=== PATIENT | male | born 1985 | race African-American/Black ===

== ENCOUNTER 2020-03-21 19:27 | Emergency (ER) | payer OTHER ==
[2020-03-21 19:33] VITALS: BMI 30.7
--- NOTE | 2020-03-21 20:12 | PDOC ---
History of Present Illness - General Chief Complaint: Pain, Acute Stated Complaint: FOOT PAIN Time Seen by Provider: 03/21/20 19:46 History Source: Patient Exam Limitations: No Limitations - History of Present Illness Initial Comments: 03/21/20 20:10 34-year-old male hx bi polar depression presented to the ED complaining of suicidal homicidal idealization as well as audiovisual hallucinations. Patient is also complaining of a right foot pain after which will not elaborate on. Patient was found at a bus stop and EMS was called. Pt states that his plan to commit suicide was to jump in front of a car and that he tried earlier today but the car stopped. Pt otherwise denies: fevers, chills, syncope, lightheadedness, dizziness, headaches, neck pain, chest pain, shortness of breath, palpitations, back pain, abdominal pain, nausea, vomiting, diarrhea, constipation. 03/21/20 20:56 Past History - Medical History Allergies/Adverse Reactions: Allergies Allergy/AdvReac Type Severity Reaction Status Date / Time No Known Allergies Allergy Verified 03/21/20 19:33 COPD: No Psychiatric Problems: Yes (BIPOLAR) - Psycho-Social/Smoking History Smoking History: Current every day smoker Number of Cigarettes Smoked Daily: 20 Information on smoking cessation initiated: No - Substance Abuse Hx (Audit-C & DAST Scrn) How often the patient has a drink containing alcohol: 2-3 times / week Number of drinks the patient has on a typical day: 1 or 2 How often the patient has six or more drinks on one occasion: Never Score: In Men: 4 or > Positive; In Women: 3 or > Positive: 3 Screen Result (Pos requires Nsg. Audit-10AR): Negative In the last yr the pt used illegal drug/Rx for NonMed reason: Yes Score: Yes response is considered Positive: 1 Screen Result (Positive result requires Nsg. DAST-10): Positive *Physical Exam - Vital Signs Last Vital Signs Temp Pulse Resp BP Pulse Ox 98.2 F 62 19 123/73 98 03/21/20 19:29 03/21/20 19:29 03/21/20 19:29 03/21/20 19:29 03/21/20 19:29 - Physical Exam 03/21/20 20:10 Gen: AAOx 3, no acute distress, comfortable, no signs of respiratory distress HENT: atraumatic, normocephalic with no laceration or contusion. Nasal mucosa without erythema. Oropharynx without erythema or exudates. Mucous membranes moist. EYES: PERRL, EOM intact, conjunctiva pink NECK: supple; trachea midline; no JVD, no lymphadenopathy, or thyromegaly CV: RRR no murmurs, gallops, or rubs. CHEST: CTA b/l no wheezing, rales or rhonchi ABD: +BS/ND. no TTP; soft, no rebound, no guarding EXTREMITY: no cyanosis or erythema. 2+ dorsalis pedis, posterior tibial, and radial pulse. No pedal edema; no calf swelling or tenderness SKIN: no rash, warm and dry, no diaphoresis HEME: no purpura or ecchymosis NEURO: normal speech, CN II-XII intact, sensation intact, normal gait, no cerebellar deficits MS: 5/5 strength in all extremities, FROM intact in all extremities except R foot R foot: ttp to posterior heel of foot distal to Achilles insertion with an area of calloused cracked skin no erythema or increased warmth ED Treatment Course - LABORATORY CBC & Chemistry Diagram: 03/21/20 20:40 03/21/20 20:40 - RADIOLOGY Radiology Studies Ordered: Category Date Time Status FOOT-RIGHT [RAD] Stat Radiology 03/21/20 20:08 Ordered Medical Decision Making - Medical Decision Making 03/21/20 20:11 34-year-old male with SI HI Vital signs stable Patient put immediately on one-on-one observation Will obtain labs EKG and foot x-ray Will keep in ED on one-on-one observation until psychiatry is able to see patient Consult placed to psych for AM Labs: White blood cell count of 10.9 H/H: 15.4/45.6 Creatinine 1.6 (will start fluids) AST 60 Alcohol negative Tylenol negative Salicylate negative Utox positive for Cocaine Foot XR negative for any acute pathology Due to shift change pt signed out 03/21/20 23:21 Discharge - Discharge Information Problems reviewed: Yes Clinical Impression/Diagnosis: Psychiatric complaint Condition: Stable - Follow up/Referral - Patient Discharge Instructions - Post Discharge Activity Work/Back to School Note: My Personal Safety Plan
--- NOTE | 2020-03-21 20:17 | PDOC ---
*Physical Exam - Vital Signs Last Vital Signs Temp Pulse Resp BP Pulse Ox 98.2 F 62 19 123/73 98 03/21/20 19:29 03/21/20 19:29 03/21/20 19:29 03/21/20 19:29 03/21/20 19:29 Medical Decision Making - Medical Decision Making 03/21/20 20:17 Patient seen by the advanced practice provider under my supervision. Ancillary testing reviewed as necessary. I agree with plan as outlined by the advanced practice provider. Discharge - Discharge Information Problems reviewed: Yes Clinical Impression/Diagnosis: Psychiatric complaint - Follow up/Referral - Patient Discharge Instructions
[2020-03-21 20:58] LABS: BASO % 0.2 % (0-2.0); EOS % 0.3 % (0-4.5); HEMATOCRIT 45.6 % (35.4-49); HEMOGLOBIN 15.4 GM/dL (11.7-16.9); MCH 30.9 pg (25.7-33.7); MCHC 33.9 g/dl (32.0-35.9); MEAN CELL VOLUME 91.3 fl (80-96); MEAN PLT VOLUME 9.8 fl (7.5-11.1); MONO % 7.9 % (3.8-10.2); NEUT % 76.6 % (42.8-82.8); PLATELET COUNT 146 K/MM3 (134-434); RBC 4.99 M/mm3 (4.00-5.60); WHITE BLOOD COUNT 10.9 K/mm3 (4.0-10.0)
[2020-03-21 21:05] LABS: INR 0.93 (0.83-1.09)
[2020-03-21 21:22] LABS: ALBUMIN 4.4 g/dl (3.4-5.0); ALK PHOS 63 U/L (45-117); ANION GAP 8 MMOL/L (8-16); BILIRUBIN,TOTAL 0.9 mg/dL (0.2-1); CALCIUM 9.5 mg/dL (8.5-10.1); CHLORIDE 106 mmol/L (98-107); CO2 26 mmol/L (21-32); CREATININE 1.6 mg/dL (0.55-1.3); GLUCOSE,RANDOM 75 mg/dL (74-106); POTASSIUM 4.1 mmol/L (3.5-5.1); SGOT/AST 60 U/L (15-37); SGPT/ALT 34 U/L (13-61); SODIUM 140 mmol/L (136-145); TOT PROT 8.1 g/dl (6.4-8.2)
[2020-03-21] MEDS ORDERED: SODIUM CHLORIDE 0.9% 500 ML INFUS.BAG IV ONE (22:18)
[2020-03-21 22:24] LABS: URINE APPEARANCE CLOUDY; URINE BILIRUBIN NEGATIVE (NEGATIVE); URINE COLOR YELLOW; URINE GLUCOSE (UA) NEGATIVE (NEGATIVE); URINE KETONE NEGATIVE (NEGATIVE); URINE LEUK ESTERASE NEGATIVE (NEGATIVE); URINE NITRITE NEGATIVE (NEGATIVE); URINE PROTEIN NEGATIVE (NEGATIVE); URINE UROBILINOGEN 0.2 mg/dL (0.2-1.0)
[2020-03-21 22:26] LABS: METHADONE, UR NEGATIVE ng/ml (CUTOFF=300); OPIATES, URI NEGATIVE ng/ml (CUTOFF=300); PHENCYCLIDINE,URINE NEGATIVE ng/ml (CUTOFF=25); URINE AMPHETAMINES NEGATIVE ng/ml (CUTOFF=500)
[2020-03-21 22:27] LABS: URINE BARBITURATES NEGATIVE ng/ml (CUTOFF=200); URINE BENZODIAZEPINES NEGATIVE ng/ml (CUTOFF=200)
[2020-03-21 22:35] LABS: COCAINE, UR POSITIVE ng/ml (CUTOFF=300)
--- NOTE | 2020-03-22 01:36 | PDOC ---
*Physical Exam - Vital Signs Last Vital Signs Temp Pulse Resp BP Pulse Ox 98.2 F 62 19 123/73 98 03/21/20 19:29 03/21/20 19:29 03/21/20 19:29 03/21/20 19:29 03/21/20 19:29 ED Treatment Course - LABORATORY CBC & Chemistry Diagram: 03/21/20 20:40 03/21/20 20:40 - ADDITIONAL ORDERS Additional order review: Laboratory Results 03/21/20 03/21/20 03/21/20 21:23 21:23 21:20 PT with INR INR Sodium Potassium Chloride Carbon Dioxide Anion Gap BUN Creatinine Cancelled Est GFR (CKD-EPI)AfAm Est GFR (CKD-EPI)NonAf Random Glucose Specific [place] Cancelled Calcium Total Bilirubin AST ALT Alkaline Phosphatase Total Protein Albumin Urine Color Yellow Urine Appearance Cloudy Urine pH 5.0 Ur Specific [place] 1.011 Urine Protein Negative Urine Glucose (UA) Negative Urine Ketones Negative Urine Blood Negative Urine Nitrite Negative Urine Bilirubin Negative Urine Urobilinogen 0.2 Ur Leukocyte Esterase Negative Urine Butalbital Cancelled Ur Butalbital Confirm Cancelled Salicylates Opiates Screen Negative Urine Opiates Screen Cancelled Urine Opiates Level Cancelled Meperidine Cancelled Urine Normeperidine Cancelled U Normeperidine GC/MS Cancelled Urine Codeine Cancelled U Codeine Confrm GC/MS Cancelled Urine Morphine Cancelled Morphine Confirm GC/MS Cancelled Urine Hydrocodone Cancelled Ur Hydrocodone (GC/MS) Cancelled Urine Oxycodone Cancelled Ur Oxycodone Confirm Cancelled Ur Oxycodone GC/MS Cancelled Oxymorphone Confirm Cancelled Urine Oxymorphone Cancelled U Oxycodone/Oxymorphon Cancelled U Oxycod/Oxymor Confirm Cancelled Methadone Screen Negative Ur Methadone Cancelled Ur Methadone Confirm Cancelled Ur Methadone (GC/MS) Cancelled Ur Hydromorphone Cancelled Ur Hydromorphone (GC/MS) Cancelled Urine Propoxyphene Cancelled Ur Propoxyphene Confrm Cancelled U Propoxyphene/M GC/MS Cancelled Acetaminophen Barbiturate Screen Negative Ur Barbiturates Screen Cancelled Urine Barbiturates Cancelled Phencyclidine Screen Negative Ur Phencyclidine (PCP) Cancelled Urine PCP Confirm Cancelled Ur PCP Confirm (GC/MS) Cancelled Amphetamines Cancelled Amphetamines Grp GC/MS Cancelled Ur Amphetamines Screen Negative Urine Amphetamine Cancelled Ur Amphetamines, Quant Cancelled Methamphetamine Cancelled Methamphetamine GC/MS Cancelled MDMA (Ecstasy) Screen Negative Urine Amobarbital Cancelled Ur Amobarbital GC/MS Cancelled Urine Pentobarbital Cancelled U Pentobarbital GC/MS Cancelled Urine Phenobarbital Cancelled U Phenobarbital GC/MS Cancelled Urine Secobarbital Cancelled U Secobarbital GC/MS Cancelled Urine Alprazolam Cancelled U [place]-Alprazolam GC/MS Cancelled Benzodiazepines Screen Negative U Benzodiazepines Scrn Cancelled U Benzodiazepine Confm Cancelled Urine Clonazepam Cancelled U 7-Amino Clonazep GC/MS Cancelled Ur Nordiazepam Cancelled Ur Nordiazepam GC/MS Cancelled Flurazepam Cancelled Flurazepam Confirm Cancelled Lorazepam Cancelled Urine Lorazepam Cancelled Ur Oxazepam Cancelled U Oxazepam Confm GC/MS Cancelled Urine Temazepam Cancelled Ur Temazepam (GC/MS) Cancelled Urine Triazolam Cancelled Ur Triazolam (GC/MS) Cancelled Meperidine (GC/MS) Cancelled Ur Meperidine Confirm Cancelled Cocaine Screen Positive A* Cocaine & Metabolite Cancelled Urine Cocaine Cancelled Benzoylecgonine Cancelled Cannabinoids Cancelled Urine Cannabinoids Cancelled U Marijuana (THC) Screen Negative Urine Marijuana (THC) Cancelled Alcohol, Quantitative Ethyl Alc Confirm Cancelled 03/21/20 03/21/20 03/21/20 20:40 20:40 20:40 PT with INR 11.00 INR 0.93 Sodium 140 Potassium 4.1 Chloride 106 Carbon Dioxide 26 Anion Gap 8 BUN 15.0 Creatinine 1.6 H Est GFR (CKD-EPI)AfAm 63.30 Est GFR (CKD-EPI)NonAf 54.61 Random Glucose 75 Specific [place] Calcium 9.5 Total Bilirubin 0.9 AST 60 H ALT 34 Alkaline Phosphatase 63 Total Protein 8.1 Albumin 4.4 Urine Color Urine Appearance Urine pH Ur Specific [place] Urine Protein Urine Glucose (UA) Urine Ketones Urine Blood Urine Nitrite Urine Bilirubin Urine Urobilinogen Ur Leukocyte Esterase Urine Butalbital Ur Butalbital Confirm Salicylates < 1.7 L Opiates Screen Urine Opiates Screen Urine Opiates Level Meperidine Urine Normeperidine U Normeperidine GC/MS Urine Codeine U Codeine Confrm GC/MS Urine Morphine Morphine Confirm GC/MS Urine Hydrocodone Ur Hydrocodone (GC/MS) Urine Oxycodone Ur Oxycodone Confirm Ur Oxycodone GC/MS Oxymorphone Confirm Urine Oxymorphone U Oxycodone/Oxymorphon U Oxycod/Oxymor Confirm Methadone Screen Ur Methadone Ur Methadone Confirm Ur Methadone (GC/MS) Ur Hydromorphone Ur Hydromorphone (GC/MS) Urine Propoxyphene Ur Propoxyphene Confrm U Propoxyphene/M GC/MS Acetaminophen < 2.0 Barbiturate Screen Ur Barbiturates Screen Urine Barbiturates Phencyclidine Screen Ur Phencyclidine (PCP) Urine PCP Confirm Ur PCP Confirm (GC/MS) Amphetamines Amphetamines Grp GC/MS Ur Amphetamines Screen Urine Amphetamine Ur Amphetamines, Quant Methamphetamine Methamphetamine GC/MS MDMA (Ecstasy) Screen Urine Amobarbital Ur Amobarbital GC/MS Urine Pentobarbital U Pentobarbital GC/MS Urine Phenobarbital U Phenobarbital GC/MS Urine Secobarbital U Secobarbital GC/MS Urine Alprazolam U OH-Alprazolam GC/MS Benzodiazepines Screen U Benzodiazepines Scrn U Benzodiazepine Confm Urine Clonazepam U 7-Amino Clonazep GC/MS Ur Nordiazepam Ur Nordiazepam GC/MS Flurazepam Flurazepam Confirm Lorazepam Urine Lorazepam Ur Oxazepam U Oxazepam Confm GC/MS Urine Temazepam Ur Temazepam (GC/MS) Urine Triazolam Ur Triazolam (GC/MS) Meperidine (GC/MS) Ur Meperidine Confirm Cocaine Screen Cocaine & Metabolite Urine Cocaine Benzoylecgonine Cannabinoids Urine Cannabinoids U Marijuana (THC) Screen Urine Marijuana (THC) Alcohol, Quantitative < 3 Ethyl Alc Confirm 03/21/20 20:40 RBC 4.99 MCV 91.3 MCHC 33.9 RDW 14.0 MPV 9.8 Neutrophils % 76.6 Lymphocytes % 15.0 Monocytes % 7.9 Eosinophils % 0.3 Basophils % 0.2 - Medications Given in the ED: ED Medications Discontinued Medications Generic Name Dose Route Start Last Admin Trade Name Freq PRN Reason Stop Dose Admin Sodium Chloride 2,000 ml 03/21/20 22:18 03/21/20 22:32 Normal Saline - IV 03/21/20 22:19 2,000 ml ONCE ONE Administration Medical Decision Making - Medical Decision Making Pt was signed out to me by Jorge Sarah, who explained the presentation, ED course, any pending results, and needed interventions. Pt has hx of depression and bipolar ds, not on medication x1 year due to ins urance issues. Pt expressed HI and SI today, attempted to jump in front of a moving vehicle put it stopped. Pt states he wants to jump in front of a train. Psych consult paged, likely psych evaluation in AM Cr 1.6 (unknown baseline) Utox positive for cocaine. Labs otherwise unremarkable. 03/22/20 01:29 Pt signed out to day team, pending psych consult 03/22/20 06:36 Discharge - Discharge Information Problems reviewed: Yes Clinical Impression/Diagnosis: Psychiatric complaint Condition: Guarded - Follow up/Referral - Patient Discharge Instructions - Post Discharge Activity Work/Back to School Note: My Personal Safety Plan
[2020-03-22] MEDS ORDERED: ACETAMINOPHEN 325 MG TABLET (FP) PO ONE (07:15)
[2020-03-22] MEDS ORDERED: ACETAMINOPHEN 325 MG TABLET (FP) ONE (07:16)
--- NOTE | 2020-03-22 07:19 | PDOC ---
ED Treatment Course - LABORATORY CBC & Chemistry Diagram: 03/21/20 20:40 03/21/20 20:40 Medical Decision Making - Medical Decision Making Pt signed out to me by Dr. Palmer, see prior note. 34 year old male with PMH bipolar disorder brought himself to ED for suicidal ideation, suicidal attempt - jumped in front of car that was able to stop in time. Last Vital Signs Temp Pulse Resp BP Pulse Ox 98.2 F 60 18 107/61 98 03/22/20 06:39 03/22/20 06:39 03/22/20 06:39 03/22/20 06:39 03/22/20 06:39 Dr. Clancy, psych, was paged last night. Awaiting psych evaluation and disposition. 03/22/20 11:32 Dr. Clancy at bedside, advised in patient psych admission. Pt will need negative COVID test before transfer will be allowed per Dr. Clancy. Will test here and pending result pt can be transferred. 2 PC. Social work. Pt is medically cleared. Discharge - Discharge Information Problems reviewed: Yes Clinical Impression/Diagnosis: Attempted suicide Condition: Guarded - Follow up/Referral - Patient Discharge Instructions - Post Discharge Activity Work/Back to School Note: My Personal Safety Plan
--- NOTE | 2020-03-22 11:39 | CON.PSY ---
Psychiatry Consult Chief Complaint: 34 Year old male seen for Psych evaluation. Patient apparant;margaux jumped in front ofv a car in an atte,pt to kill himself. Patient is positibve for Cocaine. Reports history of DFeptression and an admission to a Psych unit ion the past for Depression. P:alma henry maintains that6 he wants to kill himself.. Symptoms: reports: Depressed Mood, Suicidality, Hopelessness - Previous Psychiatric Treatment Outpatient: None Inpatient: One prior admission - Previous Substance Abuse Treatment Outpatient: None Inpatient: None - Reason for Previous Treatment Reason for Previous Treatment: Major Depression, Cocaine - Allergies Allergies: Allergies Allergy/AdvReac Type Severity Reaction Status Date / Time No Known Allergies Allergy Verified 03/21/20 19:33 - Current Living Status Usual Living Arrangement: With Significant Other - Current Mental Status Evaluation Appearance: Disheveled Attitude: Cooperative - Affect Affect: Constrictive Appropriateness: Appropriate to Content - Mood Mood: Depressed - Speech/Language Expressive: Coherent - Psychomotor Activity Psychomotor Activity: Normal - Thought Process Thought Process: Intact - Thought Content Hallucinations: Absent Delusions: Absent - Self Perception Self Perception: No Impairment - Cognition Attention: Alert Orientation: Time Memory, Immediate Recall: Intact Memory, Short Term: 3/3 Memory, Remote with Promptin/3 - Concentration Serial Sevens Intact: Yes Simple Calculations Intact: Yes - Abstraction Proverb Interpretation: Intact Judgement: Minimally Impaired - Insight Insight: Intact - Impulse Control Impulse Control: Moderately Impaired - Suicidal Ideation Suicidal Ideation: Yes (triedc to jump in front of a Car) - Homicidal Ideation Homicidal Ideation: No Assessment/Plan 10 Continue with 1:1. 20 Refer to In patient Psych unit for further treatment,
--- NOTE | 2020-03-22 16:55 | EKG ---
Test Reason : Blood Pressure : / mmHG Vent. Rate : 060 BPM Atrial Rate : 060 BPM P-R Int : 142 ms QRS Dur : 096 ms QT Int : 396 ms P-R-T Axes : 063 064 053 degrees QTc Int : 396 ms NORMAL SINUS RHYTHM WITH SINUS ARRHYTHMIA NORMAL ECG NO PREVIOUS ECGS AVAILABLE Confirmed by LUIS LÓPEZ, NAINA ([id number]) on 03/22/2020 4:55:00 PM Referred By: Confirmed By:NAINA SMITH MD
--- NOTE | 2020-03-22 19:43 | PDOC ---
*Physical Exam - Vital Signs Last Vital Signs Temp Pulse Resp BP Pulse Ox 98.1 F 60 16 127/58 L 100 03/22/20 18:05 03/22/20 18:05 03/22/20 18:05 03/22/20 18:05 03/22/20 18:05 ED Treatment Course - LABORATORY CBC & Chemistry Diagram: 03/21/20 20:40 03/21/20 20:40 - ADDITIONAL ORDERS Additional order review: 03/21/20 20:40 RBC 4.99 MCV 91.3 MCHC 33.9 RDW 14.0 MPV 9.8 Neutrophils % 76.6 Lymphocytes % 15.0 Monocytes % 7.9 Eosinophils % 0.3 Basophils % 0.2 - Medications Given in the ED: ED Medications Discontinued Medications Generic Name Dose Route Start Last Admin Trade Name Mode PRN Reason Stop Dose Admin Acetaminophen 650 mg 03/22/20 07:15 03/22/20 07:20 Tylenol - PO 03/22/20 07:16 650 mg ONCE ONE Administration Sodium Chloride 2,000 ml 03/21/20 22:18 03/21/20 22:32 Normal Saline - IV 03/21/20 22:19 2,000 ml ONCE ONE Administration Medical Decision Making - Medical Decision Making Pt signed out from night team. Endorsed SI/HI. VSS have been stable. Pt was stable during welder tool and die. Tolerating PO intake with no complaints. Pt signed out to day team, pending COVID swab results to be transferred to inpatient psych facility. 03/26/20 06:57 Discharge - Discharge Information Problems reviewed: Yes Clinical Impression/Diagnosis: Attempted suicide Condition: Stable - Follow up/Referral - Patient Discharge Instructions - Post Discharge Activity Work/Back to School Note: My Personal Safety Plan
--- NOTE | 2020-03-23 10:14 | PDOC ---
*Physical Exam - Vital Signs Last Vital Signs Temp Pulse Resp BP Pulse Ox 98.2 F 65 18 108/58 L 100 03/23/20 09:20 03/23/20 09:20 03/23/20 09:20 03/23/20 09:20 03/23/20 09:20 ED Treatment Course - LABORATORY CBC & Chemistry Diagram: 03/21/20 20:40 03/21/20 20:40 - ADDITIONAL ORDERS Additional order review: 03/21/20 20:40 RBC 4.99 MCV 91.3 MCHC 33.9 RDW 14.0 MPV 9.8 Neutrophils % 76.6 Lymphocytes % 15.0 Monocytes % 7.9 Eosinophils % 0.3 Basophils % 0.2 - Medications Given in the ED: ED Medications Discontinued Medications Generic Name Dose Route Start Last Admin Trade Name Freq PRN Reason Stop Dose Admin Acetaminophen 650 mg 03/22/20 07:15 03/22/20 07:20 Tylenol - PO 03/22/20 07:16 650 mg ONCE ONE Administration Sodium Chloride 2,000 ml 03/21/20 22:18 03/21/20 22:32 Normal Saline - IV 03/21/20 22:19 2,000 ml ONCE ONE Administration Medical Decision Making - Medical Decision Making 03/23/20 10:13 Sign out received from overnight team. Patient is a 34yo man with a PMH of bipolar disorder, found to be positive for cocaine, who presented after a suicide attempt with continued suicidal ideation. He has been medically cleared and was seen by Dr Clancy. He will be transferred to an inpatient psychiatric facility once his COVID test results. - No issues overnight - Waiting for transfer Anai Felder PGY3 Discharge - Discharge Information Problems reviewed: Yes Clinical Impression/Diagnosis: Attempted suicide Condition: Stable - Follow up/Referral - Patient Discharge Instructions - Post Discharge Activity
--- NOTE | 2020-03-23 16:03 | PN ---
Progress Note (short form) - Note Progress Note: COvid Negative. still waiting for a Psych bed.. MS; alert, oriented, still feeling depressed and suicidal .Cognition intact. PLan. 1) continue with 1:1. 2) Waiting for In Patient Psych bed.
--- NOTE | 2020-03-24 03:27 | PDOC ---
*Physical Exam - Vital Signs Last Vital Signs Temp Pulse Resp BP Pulse Ox 97.9 F 60 18 104/62 98 03/23/20 21:43 03/23/20 21:43 03/23/20 11:30 03/23/20 21:43 03/23/20 21:43 - Physical Exam 03/24/20 03:26 Patient reassessed. Resting comfortable. Requesting water. wnl assessment. ED Treatment Course - LABORATORY CBC & Chemistry Diagram: 03/21/20 20:40 03/21/20 20:40 - ADDITIONAL ORDERS Additional order review: 03/21/20 20:40 RBC 4.99 MCV 91.3 MCHC 33.9 RDW 14.0 MPV 9.8 Neutrophils % 76.6 Lymphocytes % 15.0 Monocytes % 7.9 Eosinophils % 0.3 Basophils % 0.2 - Medications Given in the ED: ED Medications Discontinued Medications Generic Name Dose Route Start Last Admin Trade Name Mode PRN Reason Stop Dose Admin Acetaminophen 650 mg 03/22/20 07:15 03/22/20 07:20 Tylenol - PO 03/22/20 07:16 650 mg ONCE ONE Administration Sodium Chloride 2,000 ml 03/21/20 22:18 03/21/20 22:32 Normal Saline - IV 03/21/20 22:19 2,000 ml ONCE ONE Administration Discharge - Discharge Information Problems reviewed: Yes Clinical Impression/Diagnosis: Attempted suicide Condition: Stable Disposition: HOME - Follow up/Referral - Patient Discharge Instructions Patient Printed Discharge Instructions: DI for Suicidal Ideation-Adult, How to Create a Suicide Prevention Safety Plan Additional Instructions: You came into the ED for thoughts of suicide, and you stayed in the ED for 6 days while waiting to speak to psychiatry. The psychiatrist determined that you were safe for discharge. Return to the ED if thoughts of suicide return. - Post Discharge Activity Work/Back to School Note: Back to Work, My Personal Safety Plan
--- NOTE | 2020-03-24 07:32 | PDOC ---
*Physical Exam - Vital Signs Last Vital Signs Temp Pulse Resp BP Pulse Ox 97.9 F 60 18 104/62 98 03/23/20 21:43 03/23/20 21:43 03/23/20 11:30 03/23/20 21:43 03/23/20 21:43 ED Treatment Course - LABORATORY CBC & Chemistry Diagram: 03/21/20 20:40 03/21/20 20:40 - ADDITIONAL ORDERS Additional order review: 03/21/20 20:40 RBC 4.99 MCV 91.3 MCHC 33.9 RDW 14.0 MPV 9.8 Neutrophils % 76.6 Lymphocytes % 15.0 Monocytes % 7.9 Eosinophils % 0.3 Basophils % 0.2 - Medications Given in the ED: ED Medications Discontinued Medications Generic Name Dose Route Start Last Admin Trade Name Freq PRN Reason Stop Dose Admin Acetaminophen 650 mg 03/22/20 07:15 03/22/20 07:20 Tylenol - PO 03/22/20 07:16 650 mg ONCE ONE Administration Sodium Chloride 2,000 ml 03/21/20 22:18 03/21/20 22:32 Normal Saline - IV 03/21/20 22:19 2,000 ml ONCE ONE Administration Medical Decision Making - Medical Decision Making 03/24/20 07:27 Sign out received from Dr Norman. Humberto Thurman is a 34yo man with a PMH of bipolar disorder, substance abuse, who presented to the ED after attempted suicide. He is medically cleared and pending transfer to an available inpatient psych bed. No overnight events reported. No additional events throughout the day today. To be signed out to overnight team. Anai Felder PGY3 Discharge - Discharge Information Problems reviewed: Yes Clinical Impression/Diagnosis: Attempted suicide Condition: Stable - Follow up/Referral - Patient Discharge Instructions - Post Discharge Activity Work/Back to School Note: My Personal Safety Plan
--- NOTE | 2020-03-24 21:50 | PDOC ---
*Physical Exam - Vital Signs Last Vital Signs Temp Pulse Resp BP Pulse Ox 98 F 58 L 18 116/70 99 03/24/20 07:41 03/24/20 17:23 03/24/20 17:23 03/24/20 17:23 03/24/20 19:49 ED Treatment Course - LABORATORY CBC & Chemistry Diagram: 03/21/20 20:40 03/21/20 20:40 - ADDITIONAL ORDERS Additional order review: 03/21/20 20:40 RBC 4.99 MCV 91.3 MCHC 33.9 RDW 14.0 MPV 9.8 Neutrophils % 76.6 Lymphocytes % 15.0 Monocytes % 7.9 Eosinophils % 0.3 Basophils % 0.2 - Medications Given in the ED: ED Medications Discontinued Medications Generic Name Dose Route Start Last Admin Trade Name Mode PRN Reason Stop Dose Admin Acetaminophen 650 mg 03/22/20 07:15 03/22/20 07:20 Tylenol - PO 03/22/20 07:16 650 mg ONCE ONE Administration Sodium Chloride 2,000 ml 03/21/20 22:18 03/21/20 22:32 Normal Saline - IV 03/21/20 22:19 2,000 ml ONCE ONE Administration Medical Decision Making - Medical Decision Making 03/24/20 21:49 Sign out received from day team Humberto Thurman is a 34yo man with a PMH of bipolar disorder, substance abuse, who presented to the ED after attempted suicide. He is medically cleared and pending transfer to [facility] inpatient psych bed. Pt resting comfortably in bed on reassessment Discharge - Discharge Information Problems reviewed: Yes Clinical Impression/Diagnosis: Attempted suicide Condition: Stable - Follow up/Referral - Patient Discharge Instructions - Post Discharge Activity Work/Back to School Note: My Personal Safety Plan
--- NOTE | 2020-03-25 07:00 | PDOC ---
*Physical Exam - Vital Signs Last Vital Signs Temp Pulse Resp BP Pulse Ox 98.0 F 57 L 18 126/69 99 03/25/20 06:28 03/25/20 06:28 03/25/20 06:28 03/25/20 06:28 03/25/20 06:28 ED Treatment Course - LABORATORY CBC & Chemistry Diagram: 03/21/20 20:40 03/21/20 20:40 - ADDITIONAL ORDERS Additional order review: 03/21/20 20:40 RBC 4.99 MCV 91.3 MCHC 33.9 RDW 14.0 MPV 9.8 Neutrophils % 76.6 Lymphocytes % 15.0 Monocytes % 7.9 Eosinophils % 0.3 Basophils % 0.2 - Medications Given in the ED: ED Medications Discontinued Medications Generic Name Dose Route Start Last Admin Trade Name Juddq PRN Reason Stop Dose Admin Acetaminophen 650 mg 03/22/20 07:15 03/22/20 07:20 Tylenol - PO 03/22/20 07:16 650 mg ONCE ONE Administration Sodium Chloride 2,000 ml 03/21/20 22:18 03/21/20 22:32 Normal Saline - IV 03/21/20 22:19 2,000 ml ONCE ONE Administration Medical Decision Making - Medical Decision Making 03/25/20 19:01 Sign out received from night team Humberto Thurman is a 34yo man with a PMH of bipolar disorder, substance abuse, who presented to the ED after attempted suicide. He is medically cleared and pending transfer to [facility] inpatient psych bed. Pt sleeping comfortably. No complaints. Signed out to night team Discharge - Discharge Information Problems reviewed: Yes Clinical Impression/Diagnosis: Attempted suicide Condition: Stable - Follow up/Referral - Patient Discharge Instructions - Post Discharge Activity Work/Back to School Note: My Personal Safety Plan
--- NOTE | 2020-03-25 19:30 | PDOC ---
*Physical Exam - Vital Signs Last Vital Signs Temp Pulse Resp BP Pulse Ox 98.0 F 57 L 18 126/69 99 03/25/20 06:28 03/25/20 06:28 03/25/20 06:28 03/25/20 06:28 03/25/20 06:28 ED Treatment Course - LABORATORY CBC & Chemistry Diagram: 03/21/20 20:40 03/21/20 20:40 - ADDITIONAL ORDERS Additional order review: 03/21/20 20:40 RBC 4.99 MCV 91.3 MCHC 33.9 RDW 14.0 MPV 9.8 Neutrophils % 76.6 Lymphocytes % 15.0 Monocytes % 7.9 Eosinophils % 0.3 Basophils % 0.2 - Medications Given in the ED: ED Medications Discontinued Medications Generic Name Dose Route Start Last Admin Trade Name Freq PRN Reason Stop Dose Admin Acetaminophen 650 mg 03/22/20 07:15 03/22/20 07:20 Tylenol - PO 03/22/20 07:16 650 mg ONCE ONE Administration Sodium Chloride 2,000 ml 03/21/20 22:18 03/21/20 22:32 Normal Saline - IV 03/21/20 22:19 2,000 ml ONCE ONE Administration Medical Decision Making - Medical Decision Making 03/25/20 19:30 Sign out received from day team Humberto Thurman is a 34yo man with a PMH of bipolar disorder, substance abuse, who presented to the ED after attempted suicide. He is medically cleared and pending transfer to [facility] inpatient psych bed. Pt resting comfortably in bed on reassessment Discharge - Discharge Information Problems reviewed: Yes Clinical Impression/Diagnosis: Attempted suicide Condition: Stable - Follow up/Referral - Patient Discharge Instructions - Post Discharge Activity Work/Back to School Note: My Personal Safety Plan
--- NOTE | 2020-03-26 09:34 | PDOC ---
*Physical Exam - Vital Signs Last Vital Signs Temp Pulse Resp BP Pulse Ox 98.2 F 60 19 125/52 L 98 03/26/20 06:39 03/26/20 06:39 03/26/20 06:39 03/26/20 06:39 03/26/20 07:10 ED Treatment Course - LABORATORY CBC & Chemistry Diagram: 03/21/20 20:40 03/21/20 20:40 - ADDITIONAL ORDERS Additional order review: 03/21/20 20:40 RBC 4.99 MCV 91.3 MCHC 33.9 RDW 14.0 MPV 9.8 Neutrophils % 76.6 Lymphocytes % 15.0 Monocytes % 7.9 Eosinophils % 0.3 Basophils % 0.2 - Medications Given in the ED: ED Medications Discontinued Medications Generic Name Dose Route Start Last Admin Trade Name Mode PRN Reason Stop Dose Admin Acetaminophen 650 mg 03/22/20 07:15 03/22/20 07:20 Tylenol - PO 03/22/20 07:16 650 mg ONCE ONE Administration Sodium Chloride 2,000 ml 03/21/20 22:18 03/21/20 22:32 Normal Saline - IV 03/21/20 22:19 2,000 ml ONCE ONE Administration Medical Decision Making - Medical Decision Making Sign out received from night team. Pt is a 34M with a PMH of bipolar disorder and substance abuse who presented to the ED following suicidal ideation. Pt has been here 6 days, and is resting comfortably in bed on reassessment. Pt denied suicidal ideation and plan and was cleared by Dr. Clancy for discharge. Discharge - Discharge Information Problems reviewed: Yes Clinical Impression/Diagnosis: Attempted suicide Condition: Stable Disposition: HOME - Admission No - Follow up/Referral - Patient Discharge Instructions Patient Printed Discharge Instructions: DI for Suicidal Ideation-Adult, How to Create a Suicide Prevention Safety Plan Additional Instructions: You came into the ED for thoughts of suicide, and you stayed in the ED for 6 days while waiting to speak to psychiatry. The psychiatrist determined that you were safe for discharge. Return to the ED if thoughts of suicide return. - Post Discharge Activity Work/Back to School Note: My Personal Safety Plan, Back to Work
[2020-03-26 10:32] VITALS: PULSE 53
--- NOTE | 2020-03-26 16:29 | PN ---
Progress Note (short form) - Note Progress Note: Patient seen for Psych re eval. has been here for 6 days of observation for Suicidal thoughts.. COVID Negative.. MS; alert, pleasany, cooperative. denies any suicidal or plans.. Will return to his Job in [employer]. REC: d/c1:!. 2) No psych fo;;ow up. will see his MD in clinic.
[2020-03-26 16:48] VITALS: BP 128/78; TEMP 97.7
--- NOTE | 2020-03-28 10:27 | EKG ---
Test Reason : Blood Pressure : / mmHG Vent. Rate : 046 BPM Atrial Rate : 046 BPM P-R Int : 152 ms QRS Dur : 090 ms QT Int : 408 ms P-R-T Axes : 060 063 043 degrees QTc Int : 357 ms SINUS BRADYCARDIA OTHERWISE NORMAL ECG WHEN COMPARED WITH ECG OF 21-MAR-2020 21:49, NO SIGNIFICANT CHANGE WAS FOUND Confirmed by MD Sunshine Daniel ([id number]) on 03/28/2020 10:26:58 AM Referred By: Confirmed By:Yong Sunshine MD
== END 2020-03-26 18:07 | disposition home or self-care (01) ==
LOC: JERFT 19:27 → JER 19:27
DX: T14.91XA Suicide attempt, initial encounter (principal)
CPT/HCPCS: 36415; 73630-TC-RT-FY; 80053; 80307; 81003; 85025; 85610; 93005; 93010; 99285-25; U0003